=== PATIENT | female | born 1960 | race Caucasian/White ===

== ENCOUNTER 2017-04-11 19:40 | Emergency (ER) | payer OTHER ==
[2017-04-11 20:11] VITALS: TEMP 98; BMI 27.3
[2017-04-11] MEDS ORDERED: LABETALOL HCL 5 MG/1 ML (100MG/20 ML VIAL) IVPUSH ONE (21:02)
[2017-04-11] MEDS ORDERED: LABETALOL HCL 5 MG/1 ML (200MG/40ML VIAL) IVPB ONE (21:09)
[2017-04-11] MEDS ORDERED: morphine CARPU-JECT 2 MG/1 ML DISP.SYRIN IVPUSH ONE (21:14)
[2017-04-11 21:25] LABS: BASOPHIL 0.8 % (0-2.0); EOSINOPHIL 0.4 % (0-4.5); MCHC 33.4 g/dl (32.0-36.0); MEAN PLT VOLUME 8.3 fl (7.5-11.1); NEUTROPHILS 66.4 % (42.8-82.8); PLATELET COUNT 391 K/MM3 (134-434); RDW 14.4 % (11.6-15.6); WHITE BLOOD COUNT 12.2 K/mm3 (4.0-10.0)
[2017-04-11] MEDS ORDERED: morphine CARPU-JECT 4 MG/1 ML DISP.SYRIN ONE (21:25)
[2017-04-11] MEDS ORDERED: hydrALAZINE HCL 20 MG/ML VIAL IVPUSH ONE (21:34)
[2017-04-11 21:49] LABS: INR 1.04 (0.82-1.09); PROTHROMBIN TIME (PATIENT) 11.5 SEC (9.98-11.88)
[2017-04-11 21:51] LABS: ALBUMIN 4.3 g/dl (3.4-5.0); ANION GAP 9 (8-16); BILIRUBIN,TOTAL 0.4 mg/dL (0.2-1.0); CALCIUM 9.5 mg/dL (8.5-10.1); CO2 30 mmol/L (21-32); CREATININE 0.6 mg/dL (0.55-1.02); GLUCOSE,RANDOM 152 mg/dL (74-106); SGOT/AST 14 U/L (15-37); SGPT/ALT 25 U/L (12-78)
[2017-04-11 21:53] LABS: ALK PHOS 67 U/L (45-117); CPK 33 IU/L (26-192); TROPONIN I < 0.02 ng/ml (0.00-0.05)
[2017-04-11] MEDS ORDERED: hydrALAZINE HCL 20 MG/ML VIAL ONE (22:02)
--- NOTE | 2017-04-11 22:48 | PDOC ---
History of Present Illness - General Chief Complaint: Pain Stated Complaint: STOMACH PAIN Time Seen by Provider: 04/11/17 20:26 - History of Present Illness Initial Comments: 04/11/17 22:41 CHIEF COMPLAINT: abdominal pain HISTORY OF PRESENT ILLNESS: 56 yo F with hx of HTN and NIDDM presents to ED with abdominal pain x 1 week. Patient reports vomiting 3x a day for the past few days as well as approximately 10 episodes of diarrhea over the past two days. She also reports a headache since yesterday as well as photophobia today. Patient reports that she takes Losartan for her blood pressure and Metformin for her diabetes, but she has been throwing up the pills this week after taking them. PAST MEDICAL HISTORY: Denies past medical history FAMILY HISTORY: Denies SOCIAL HISTORY: Denies tobacco, alcohol, illicit drug use. SURGICAL HISTORY: Denies ALLERGIES: No known drug allergies REVIEW OF SYSTEMS as per HPI PHYSICAL EXAM General Appearance: Well-appearing, appropriately dressed. No apparent distress. HEENT: EOMI, PERRLA, normal ENT inspection, normal voice, TMs normal, pharynx normal. No conjunctival pallor. No photophobia, scleral icterus. Neck: Supple. Trachea midline. No tenderness, rigidity, carotid bruit, stridor , lymphadenopathy, or thyromegaly. Respiratory/Chest: Lungs CTAB. No shortness of breath, chest tenderness, respiratory distress, accessory muscle use. No crackles, rales, rhonchi, stridor , wheezing, dullness Cardiovascular: RRR. S1, S2. No JVD, murmur, bradycardia, tachycardia. Vascular Pulses: Dorsalis-Pedis (R): 2+, Dorsalis-Pedis (L): 2+ Gastrointestinal/Abdominal: Normal bowel sounds. Abdomen soft, non-distended. No tenderness or rebound tenderness. No organomegaly, pulsatile mass, guarding , hernia, hepatomegaly, splenomegaly. Lymphatic: No adenopathy, tenderness. Musculoskeletal/Extremities: Normal inspection. FROM of all extremities, normal capillary refill. Pelvis Stable. No CVA tenderness. No tenderness to extremities, pedal edema, swelling, erythema or deformity. Integumentary: Appropriate color, dry, warm. No cyanosis, erythema, jaundice or rash Neurologic: hand cloth folder [id number] intact. Fully oriented, alert. Appropriate mood/affect. Motor strength 5/5. No appreciable EOM palsy, facial droop or sensory deficit. Past History - Past Medical History Allergies/Adverse Reactions: Allergies Allergy/AdvReac Type Severity Reaction Status Date / Time No Known Allergies Allergy Verified 04/11/17 20:12 Home Medications: Ambulatory Orders Losartan Potassium 100 mg PO DAILY 04/11/17 Metformin HCl 500 mg PO BID 04/11/17 Ondansetron [Zofran *Odt*] 8 mg SL TID PRN #21 od.tablet 04/12/17 Diabetes: Yes HTN: Yes - Immunization History Immunization Up to Date: Yes - Psycho/Social/Smoking Cessation Hx Suicidal Ideation: No Smoking History: Never smoked Have you smoked in the past 12 months: No Information on smoking cessation initiated: No Hx Alcohol Use: No Drug/Substance Use Hx: No *Physical Exam - Vital Signs Last Vital Signs Temp Pulse Resp BP Pulse Ox 98.0 F 16 205/111 98 04/11/17 20:07 04/11/17 20:07 04/11/17 20:07 04/11/17 20:07 ED Treatment Course - LABORATORY CBC & Chemistry Diagram: 04/11/17 21:15 04/11/17 21:15 - ADDITIONAL ORDERS Additional order review: Laboratory Results 04/11/17 04/11/17 04/11/17 21:15 21:15 21:15 INR 1.04 D-Dimer 209 Sodium 134 L Potassium 3.9 Chloride 95 L Carbon Dioxide 30 Anion Gap 9 BUN 7 Creatinine 0.6 Creat Clearance w eGFR > 60 Random Glucose 152 H Calcium 9.5 Total Bilirubin 0.4 AST 14 L ALT 25 Alkaline Phosphatase 67 Creatine Kinase 33 Troponin I < 0.02 Total Protein 8.0 Albumin 4.3 04/11/17 21:15 RBC 4.69 MCV 84.0 MCHC 33.4 RDW 14.4 MPV 8.3 Neutrophils % 66.4 Lymphocytes % 25.1 Monocytes % 7.3 Eosinophils % 0.4 Basophils % 0.8 - RADIOLOGY Radiology Studies Ordered: Category Date Time Status ABDOMEN CTA W/WO CONTRAST [CT] Stat CT Scan 04/11/17 21:14 Ordered CHEST CTA [CT] Stat CT Scan 04/11/17 21:19 Ordered CHEST PA & LAT [RAD] Stat Radiology 04/11/17 20:48 Completed - Medications Given in the ED: ED Medications Discontinued Medications Generic Name Dose Route Start Last Admin Trade Name Freq PRN Reason Stop Dose Admin Hydralazine HCl 10 mg 04/11/17 21:34 04/11/17 21:59 Apresoline Injection - IVPUSH 04/11/17 21:35 10 mg ONCE ONE Administration Labetalol HCl 10 mg 04/11/17 21:02 04/11/17 21:07 Normodyne Injection - IVPUSH 04/11/17 21:03 10 mg ONCE ONE Administration Morphine Sulfate 2 mg 04/11/17 21:14 04/11/17 21:20 Morphine Injection - IVPUSH 04/11/17 21:15 2 mg ONCE ONE Administration Medical Decision Making - Medical Decision Making 04/12/17 00:23 56 yo F with hx of HTN and NIDDM presents to ED with abdominal pain x 1 week. VS remarkable for BP 224/111 on arrival. -CBC, CMP, card profile, D-dimer, PT/INR, Mg -10 mg labetalol Repeat BP - left BP 228/104, R BP 228/76 -abdomen and chest CTA r/o dissection Repeat BP s/p administration of labetalol 173/98 -10mg hydralazine -10mg morphine Patient reassessed, BP now 124/76. Patient reports that she no longer has any pain to her head or abdomen and is no longer nauseous. *DC/Admit/Observation/Transfer Diagnosis at time of Disposition: Hypertensive emergency - Discharge Dispostion Disposition: HOME Admit: No - Prescriptions Prescriptions: Ondansetron [Zofran *Odt*] 8 mg SL TID PRN #21 od.tablet PRN Reason: Nausea And/Or Vomiting - Referrals Referrals: Heidy Rhodes MD [Primary Care Provider] - Jonny Oleary MD [Staff Physician] - - Patient Instructions Printed Discharge Instructions: DI for Malignant Hypertension Additional Instructions: Take your new medication as prescribed. Please continue to take your blood pressure and diabetes medications as prescribed. You MUST follow up with your primary care doctor and a health information administrator THIS WEEK. If you experience any chest pain, shortness of breath, headache, palpitations, left arm or jaw pain, dizziness, or any new or worsening symptoms, please return to the ER. Celia mena medicamento nuevo solitario lo prescito. Por favor contine tomando roxi medicamentos para la diabetes y la presion segn lo prescrito. Tienes que seguir con mena mdico y un cardilogo ESTA SEMANA. Si experimenta cualquier dolor en el pecho, dificultad para respirar, dolor de jon, palpitaciones, dolor en el brazo dmitry o en la mandbula, mareos o cualquier nuevo o empeoramiento de los sntomas, por favor regrese a la ciaran de emergencias. Print Language: SERBIAN
[2017-04-11] MEDS ORDERED: ONDANSETRON 4 MG/2 ML VIAL IVPUSH ONE (22:51)
[2017-04-11] MEDS ORDERED: FAMOTIDINE 20 MG/50 ML IVPB 50 ML IVPB ONE ×2 (22:51→23:03)
[2017-04-11] MEDS ORDERED: ONDANSETRON 4 MG/2 ML VIAL ONE (23:03)
[2017-04-11 23:19] VITALS: BP 184/93; PULSE 83
--- NOTE | 2017-04-12 00:52 | PDOC ---
*Physical Exam - Vital Signs Last Vital Signs Temp Pulse Resp BP Pulse Ox 98.0 F 83 16 184/93 99 04/11/17 20:07 04/11/17 21:51 04/11/17 20:07 04/11/17 21:51 04/11/17 20:33 ED Treatment Course - LABORATORY CBC & Chemistry Diagram: 04/11/17 21:15 04/11/17 21:15 - ADDITIONAL ORDERS Additional order review: Laboratory Results 04/11/17 04/11/17 04/11/17 21:15 21:15 21:15 INR 1.04 D-Dimer 209 Sodium 134 L Potassium 3.9 Chloride 95 L Carbon Dioxide 30 Anion Gap 9 BUN 7 Creatinine 0.6 Creat Clearance w eGFR > 60 Random Glucose 152 H Calcium 9.5 Total Bilirubin 0.4 AST 14 L ALT 25 Alkaline Phosphatase 67 Creatine Kinase 33 Troponin I < 0.02 Total Protein 8.0 Albumin 4.3 04/11/17 21:15 RBC 4.69 MCV 84.0 MCHC 33.4 RDW 14.4 MPV 8.3 Neutrophils % 66.4 Lymphocytes % 25.1 Monocytes % 7.3 Eosinophils % 0.4 Basophils % 0.8 - Medications Given in the ED: ED Medications Discontinued Medications Generic Name Dose Route Start Last Admin Trade Name Freq PRN Reason Stop Dose Admin Hydralazine HCl 10 mg 04/11/17 21:34 04/11/17 21:59 Apresoline Injection - IVPUSH 04/11/17 21:35 10 mg ONCE ONE Administration Famotidine/Sodium Chloride 50 mls @ 100 mls/hr 04/11/17 22:51 04/11/17 23:14 Pepcid 20 Mg Premixed Ivpb - IVPB 04/11/17 23:20 100 mls/hr ONCE ONE Administration Labetalol HCl 10 mg 04/11/17 21:02 04/11/17 21:07 Normodyne Injection - IVPUSH 04/11/17 21:03 10 mg ONCE ONE Administration Morphine Sulfate 2 mg 04/11/17 21:14 04/11/17 21:20 Morphine Injection - IVPUSH 04/11/17 21:15 2 mg ONCE ONE Administration Ondansetron HCl 8 mg 04/11/17 22:51 04/11/17 23:14 Zofran Injection IVPUSH 04/11/17 22:52 8 mg ONCE ONE Administration Medical Decision Making - Medical Decision Making 04/12/17 00:52 agree with care from LABORATORY ENGINEER Lydia *DC/Admit/Observation/Transfer Diagnosis at time of Disposition: Hypertensive emergency - Discharge Dispostion Disposition: HOME - Prescriptions Prescriptions: Ondansetron [Zofran *Odt*] 8 mg SL TID PRN #21 od.tablet PRN Reason: Nausea And/Or Vomiting - Referrals Referrals: Jonny Oleary MD [Staff Physician] - Heidy Rhodes MD [Primary Care Provider] - - Patient Instructions Printed Discharge Instructions: DI for Malignant Hypertension Additional Instructions: Take your new medication as prescribed. Please continue to take your blood pressure and diabetes medications as prescribed. You MUST follow up with your primary care doctor and a ems instructor THIS WEEK. If you experience any chest pain, shortness of breath, headache, palpitations, left arm or jaw pain, dizziness, or any new or worsening symptoms, please return to the ER. Celia mena medicamento nuevo solitario lo prescito. Por favor contine tomando roxi medicamentos para la diabetes y la presion segn lo prescrito. Tienes que seguir con mena mdico y un cardilogo ESTA SEMANA. Si experimenta cualquier dolor en el pecho, dificultad para respirar, dolor de jon, palpitaciones, dolor en el brazo dmitry o en la mandbula, mareos o cualquier nuevo o empeoramiento de los sntomas, por favor regrese a la ciaran de emergencias. Print Language: MALAWIAN
--- NOTE | 2017-04-19 14:57 | EKG ---
Test Reason : Blood Pressure : / mmHG Vent. Rate : 074 BPM Atrial Rate : 074 BPM P-R Int : 150 ms QRS Dur : 088 ms QT Int : 390 ms P-R-T Axes : 057 025 056 degrees QTc Int : 432 ms NORMAL SINUS RHYTHM NORMAL ECG NO PREVIOUS ECGS AVAILABLE Confirmed by EMILY LIND MD ([id number]) on 04/19/2017 2:57:10 PM Referred By: Confirmed By:EMILY LIND MD
== END 2017-04-12 01:02 | disposition home or self-care (01) ==
LOC: JER 19:40
PROC: 3E033NZ Introduction of Analgesics, Hypnotics, Sedatives into Peripheral Vein, Percutaneous Approach (ICD-10-PCS; principal; 2017-04-11)
PROC: 3E033GC Introduction of Other Therapeutic Substance into Peripheral Vein, Percutaneous Approach (ICD-10-PCS; 2017-04-11)
DX: I16.0 Hypertensive urgency (principal); E11.9 Type 2 diabetes mellitus without complications
CPT/HCPCS: 71020-TC; 71275-TC; 74175-TC; 80053; 84484; 85025; 85379; 85610; 93005; 93010; 99283-25

== ENCOUNTER 2019-04-14 19:24 | Observation (INO) | payer OTHER ==
[2019-04-14] MEDS ORDERED: metoPROLOL SUCCINATE 25 MG TAB.SR.24H (FP) PO ONE (19:47)
--- NOTE | 2019-04-14 19:47 | PDOC ---
Rapid Medical Evaluation Time Seen by Provider: 04/14/19 19:44 Medical Evaluation: Allergies Allergy/AdvReac Type Severity Reaction Status Date / Time No Known Allergies Allergy Verified 04/11/17 20:12 04/14/19 19:44 HPI: C/O HTN at home measuring 200/95 at home complains of RUSSO and Palpitations; 195/94 PE: No gross deficits ORDERS: Metoprolol CT head Discharge Disposition - Diagnosis Hypertensive emergency - Referrals - Patient Instructions - Post Discharge Activity
[2019-04-14 19:48] VITALS: BMI 60.5
[2019-04-14 22:13] LABS: BASO % 0.7 % (0-2.0); EOS % 1.6 % (0-4.5); HEMATOCRIT 35.3 % (32.4-45.2); HEMOGLOBIN 12.1 GM/dL (10.7-15.3); LYMPH % 38.9 % (8-40); MCH 28.5 pg (25.7-33.7); MCHC 34.1 g/dl (32.0-36.0); MEAN CELL VOLUME 83.5 fl (80-96); MEAN PLT VOLUME 8.5 fl (7.5-11.1); MONO % 5.3 % (3.8-10.2); NEUT % 53.5 % (42.8-82.8); PLATELET COUNT 335 K/MM3 (134-434); RBC 4.23 M/mm3 (3.60-5.2); RDW 16.1 % (11.6-15.6); WHITE BLOOD COUNT 8.6 K/mm3 (4.0-10.0)
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
[2019-04-14 23:36] LABS: URINE APPEARANCE CLEAR; URINE BILIRUBIN NEGATIVE (NEGATIVE); URINE COLOR YELLOW; URINE GLUCOSE (UA) TRACE (NEGATIVE); URINE KETONE NEGATIVE (NEGATIVE); URINE LEUK ESTERASE NEGATIVE (NEGATIVE); URINE NITRITE NEGATIVE (NEGATIVE); URINE PROTEIN NEGATIVE (NEGATIVE); URINE UROBILINOGEN 0.2 mg/dL (0.2-1.0)
--- NOTE | 2019-04-14 23:55 | PN ---
Teaching Attending Note Name of Resident: Freida Amaya ATTENDING PHYSICIAN STATEMENT I saw and evaluated the patient. I reviewed the resident's note and discussed the case with the resident. I agree with the resident's findings and plan as documented. Seen and examined; please see resident note for further historical information. Briefly, this is a 58 y/o female who recently changed her BP meds (LP to amlo ) presents with a CC of chest tightness, typical HTN sx. No current CP. Pending repeat troponin. Will require obs for telemetry with potential cardiac consultation VS, labs, imaging SBP initially elevated to the 190s; now 150s. Checking orthostatics as well. NAD, AAO, resting in bed NC AT EOMI PERRLA RRR s1/2 NC AT EOMI PERRLA CN2-12 wnl, no fnd Normal mood, appropriate behavior EKG reviewed; on telemetry CXR reviewed Echo pending ASSESSMENT AND PLAN: Patient presents for chest tightness, HTN. She has multiple CAD risk factors. BP is wnl, CP free now
--- NOTE | 2019-04-15 00:37 | PDOC ---
Documentation entered by Allen Coleman SCRIBE, acting as scribe for Ceci Vega DO. Ceci Vega DO: This documentation has been prepared by the Jared steele Elijah, SCRIBE, under my direction and personally reviewed by me in its entirety. I confirm that the documentation accurately reflects all work , treatment, procedures, and medical decision making performed by me. Attending Attestation - Resident Resident Name: Yon Gomez - ED Attending Attestation I have performed the following: I have examined & evaluated the patient, The case was reviewed & discussed with the resident, I agree w/resident's findings & plan - HPI HPI: 04/14/19 22:37 Patient is a 58 year old female with a significant past medical history of HTN and DM who presents to the ED with CP, Lightheadedness and Dizziness. Patient associates a cough with her symptoms and notes that she has recently spent a lot of time out in the sun. Denies trauma. Allergies: NKA PCP: Dr. Rhodes 04/15/19 00:30 - Physicial Exam PE: 04/14/19 22:39 Agree with Resident's Exam - Medical Decision Making 04/15/19 00:35 58-year-old female with intermittent chest pain and lightheadedness EKG was unremarkable Troponin and CT scan of the brain are within normal limits Due to patient's age and chest pain associated dizziness she will be held for serial enzymes and further evaluation
--- NOTE | 2019-04-15 01:44 | HP ---
CHIEF COMPLAINT: Chest pain and headache PCP: Dr. Heidy Rhodes HISTORY OF PRESENT ILLNESS: Patient is a 58 year old female with PMH of HTN and NIDDM who presents with chest pain and headache for 4 days. Chest pain is dull, pleuritic, and non- radiating. Her headache is constant and 7/10 in severity. She reports that last week, her PCP switched her BP medication from losartan to amlodipine and since then, she has had these symptoms. She takes her BP frequently at home and notes that it has been high since her med change. Today it was in the 200s so she decided to come to the ED. Pt endorses associated dizziness, but denies any SOB , abd pain, nausea, vomiting, diarrhea, blurred vision, tinnitus. ER course was notable for: (1) BP: 195/94, given 25mg metoprolol succinate and improved to 152/78 (2) EKG: NSR, no ST elevations, trop neg (3) CT head: no acute intracranial pathology (4) UA: neg, labs WNL Recent Travel: denies PAST MEDICAL HISTORY: HTN NIDDM PAST SURGICAL HISTORY: Denies Social History: Smoking: denies Alcohol: denies Drugs: denies Family History: Mother: [place] Father: stroke Sister: Breast [place] Brother: [place] Allergies No Known Allergies Allergy (Verified 04/11/17 20:12) HOME MEDICATIONS: Home Medications Medication Instructions Recorded Losartan Potassium 100 mg PO DAILY 04/11/17 metFORMIN HCL [Metformin HCl] 500 mg PO BID 04/11/17 Ondansetron [Zofran *Odt*] 8 mg SL TID PRN #21 od.tablet 04/12/17 REVIEW OF SYSTEMS CONSTITUTIONAL: Absent: fever, chills, diaphoresis, generalized weakness, malaise, loss of appetite, weight change HEENT: Absent: rhinorrhea, nasal congestion, throat pain, throat swelling, difficulty swallowing, mouth swelling, ear pain, eye pain, visual changes CARDIOVASCULAR: chest pain Absent: syncope, palpitations, irregular heart rate, lightheadedness, peripheral edema RESPIRATORY: Absent: cough, shortness of breath, dyspnea with exertion, orthopnea, wheezing, stridor, hemoptysis GASTROINTESTINAL: Absent: abdominal pain, abdominal distension, nausea, vomiting, diarrhea, constipation, melena, hematochezia GENITOURINARY: Absent: dysuria, frequency, urgency, hesitancy, hematuria, flank pain, genital pain MUSCULOSKELETAL: Absent: myalgia, arthralgia, joint swelling, back pain, neck pain SKIN: Absent: rash, itching, pallor HEMATOLOGIC/IMMUNOLOGIC: Absent: easy bleeding, easy bruising, lymphadenopathy, frequent infections ENDOCRINE: Absent: unexplained weight gain, unexplained weight loss, heat intolerance, cold intolerance NEUROLOGIC: headache, dizziness Absent: focal weakness or paresthesias, unsteady gait, seizure, mental status changes, bladder or bowel incontinence PSYCHIATRIC: Absent: anxiety, depression, suicidal or homicidal ideation, hallucinations. PHYSICAL EXAMINATION Vital Signs - 24 hr 04/14/19 04/14/19 04/14/19 19:44 21:19 22:19 Temperature 98.5 F Pulse Rate 84 Pulse Rate [ 85 64 Apical] Respiratory 20 20 17 Rate Blood Pressure 195/94 H Blood Pressure 181/83 H 158/83 [Left Arm] O2 Sat by Pulse 100 99 97 Oximetry (%) GENERAL: Awake, alert, and fully oriented, in no acute distress. HEAD: Normal with no signs of trauma. EYES: Pupils equal, round and reactive to light, extraocular movements intact, sclera anicteric, conjunctiva clear. No lid lag. EARS, NOSE, THROAT: Ears normal, nares patent, oropharynx clear without exudates. Moist mucous membranes. NECK: Normal range of motion, supple without lymphadenopathy, JVD, or masses. LUNGS: Breath sounds equal, clear to auscultation bilaterally. No wheezes, and no crackles. No accessory muscle use. HEART: Regular rate and rhythm, normal S1 and S2 without murmur, rub or gallop. ABDOMEN: Soft, nontender, not distended, normoactive bowel sounds, no guarding, no rebound, no masses. No hepatomegaly or splenomegaly. MUSCULOSKELETAL: Normal range of motion at all joints. No bony deformities or tenderness. No CVA tenderness. UPPER EXTREMITIES: 2+ pulses, warm, well-perfused. No cyanosis. No clubbing. No peripheral edema. LOWER EXTREMITIES: 2+ pulses, warm, well-perfused. No calf tenderness. No peripheral edema. NEUROLOGICAL: Cranial nerves II-XII intact. Normal speech. Normal gait. PSYCHIATRIC: Cooperative. Good eye contact. Appropriate mood and affect. SKIN: Warm, dry, normal turgor, no rashes or lesions noted, normal capillary refill. Laboratory Results - last 24 hr CBC, BMP 04/14/19 21:59 04/15/19 00:45 Urine Test Results Urine Color Yellow Urine Appearance Clear Urine pH 6.0 (5.0-8.0) Ur Specific [place] 1.014 (1.010-1.035) Urine Protein Negative (NEGATIVE) Urine Glucose (UA) Trace (NEGATIVE) Urine Ketones Negative (NEGATIVE) Urine Blood Negative (NEGATIVE) Urine Nitrite Negative (NEGATIVE) Urine Bilirubin Negative (NEGATIVE) Ur Leukocyte Esterase Negative (NEGATIVE) ASSESSMENT/PLAN: Patient is a 58 year old female with PMH of HTN and NIDDM who presents with chest pain and headache for 4 days. #Hypertensive urgency BP: 195/94 on admission, improved to 152/78 s/p 25mg metoprolol succinate Will cont home meds norvasc 10mg daily CT head: no acute intracranial pathology CXR: no acute pathology EKG: NSR, no ST elevations Trend serial troponins (neg x1), pending 2 more F/u echo in am #NIDDM Pt on metformin at home Will start on SSI TIDAC while admitted in hospital FSG monitoring TID #FEN No standing fluids Diabetic diet #DVT ppx SCDs #Dispo Placed in obs, awaiting echo in am Visit type - Emergency Visit Emergency Visit: Yes ED Registration Date: 04/15/19 Care time: The patient presented to the Emergency Department on the above date and was hospitalized for further evaluation of their emergent condition. - New Patient This patient is new to me today: Yes Date on this admission: 04/15/19 - Critical Care Critical Care patient: No ATTENDING PHYSICIAN STATEMENT I saw and evaluated the patient. I reviewed the resident's note and discussed the case with the resident. I agree with the resident's findings and plan as documented. SUBJECTIVE: OBJECTIVE: ASSESSMENT AND PLAN:
[2019-04-15 02:07] LABS: ALBUMIN 3.6 g/dl (3.4-5.0); BILIRUBIN,TOTAL 0.1 mg/dL (0.2-1); BLOOD UREA NITROGEN 16.2 mg/dL (7-18); CALCIUM 8.9 mg/dL (8.5-10.1); CREATININE 0.5 mg/dL (0.55-1.3); POTASSIUM 4.1 mmol/L (3.5-5.1); TOT PROT 6.5 g/dl (6.4-8.2)
--- NOTE | 2019-04-15 06:40 | PN ---
Physical Exam: SUBJECTIVE: Patient seen and examined OBJECTIVE: Vital Signs Period Temp Pulse Resp BP Sys/Cline Pulse Ox Last 24 Hr 98.5 F 64-85 17-20 158-195/83-94 97-100 GENERAL: The patient is awake, alert, and fully oriented, in no acute distress. HEAD: Normal with no signs of trauma. EYES: PERRL, extraocular movements intact, sclera anicteric, conjunctiva clear. No ptosis. ENT: Ears normal, nares patent, oropharynx clear without exudates, moist mucous membranes. NECK: Trachea midline, full range of motion, supple. LUNGS: Breath sounds equal, clear to auscultation bilaterally, no wheezes, no crackles, no accessory muscle use. HEART: Regular rate and rhythm, S1, S2 without murmur, rub or gallop. ABDOMEN: Soft, nontender, nondistended, normoactive bowel sounds, no guarding, no rebound, no hepatosplenomegaly, no masses. EXTREMITIES: 2+ pulses, warm, well-perfused, no edema. NEUROLOGICAL: Cranial nerves II through XII grossly intact. Normal speech, gait not observed. PSYCH: Normal mood, normal affect. SKIN: Warm, dry, normal turgor, no rashes or lesions noted Laboratory Results - last 24 hr 04/14/19 04/14/19 04/14/19 21:59 21:59 21:59 WBC 8.6 RBC 4.23 Hgb 12.1 Hct 35.3 MCV 83.5 MCH 28.5 MCHC 34.1 RDW 16.1 H Plt Count 335 MPV 8.5 Absolute Neuts (auto) 4.6 Neutrophils % 53.5 Lymphocytes % 38.9 D Monocytes % 5.3 Eosinophils % 1.6 D Basophils % 0.7 Nucleated RBC % 0 Sodium Cancelled Potassium Cancelled Chloride Cancelled Carbon Dioxide Cancelled Anion Gap Cancelled BUN Cancelled Creatinine Cancelled Est GFR (CKD-EPI)AfAm Cancelled Est GFR (CKD-EPI)NonAf Cancelled Random Glucose Cancelled Calcium Cancelled Total Bilirubin Cancelled AST Cancelled ALT Cancelled Alkaline Phosphatase Cancelled Creatine Kinase Cancelled Troponin I Cancelled Total Protein Cancelled Albumin Cancelled Urine Color Urine Appearance Urine pH Ur Specific [place] Urine Protein Urine Glucose (UA) Urine Ketones Urine Blood Urine Nitrite Urine Bilirubin Urine Urobilinogen Ur Leukocyte Esterase Blood Type Antibody Screen 04/14/19 04/14/19 04/15/19 21:59 22:30 00:45 WBC RBC Hgb Hct MCV MCH MCHC RDW Plt Count MPV Absolute Neuts (auto) Neutrophils % Lymphocytes % Monocytes % Eosinophils % Basophils % Nucleated RBC % Sodium 142 Potassium 4.1 Chloride 108 H Carbon Dioxide 27 Anion Gap 6 L BUN 16.2 Creatinine 0.5 L Est GFR (CKD-EPI)AfAm 125.40 Est GFR (CKD-EPI)NonAf 108.19 Random Glucose 117 H Calcium 8.9 Total Bilirubin 0.1 L AST 9 L ALT 22 Alkaline Phosphatase 66 Creatine Kinase Troponin I Total Protein 6.5 Albumin 3.6 Urine Color Yellow Urine Appearance Clear Urine pH 6.0 Ur Specific [place] 1.014 Urine Protein Negative Urine Glucose (UA) Trace Urine Ketones Negative Urine Blood Negative Urine Nitrite Negative Urine Bilirubin Negative Urine Urobilinogen 0.2 Ur Leukocyte Esterase Negative Blood Type Cancelled Antibody Screen Cancelled 04/15/19 00:45 WBC RBC Hgb Hct MCV MCH MCHC RDW Plt Count MPV Absolute Neuts (auto) Neutrophils % Lymphocytes % Monocytes % Eosinophils % Basophils % Nucleated RBC % Sodium Potassium Chloride Carbon Dioxide Anion Gap BUN Creatinine Est GFR (CKD-EPI)AfAm Est GFR (CKD-EPI)NonAf Random Glucose Calcium Total Bilirubin AST ALT Alkaline Phosphatase Creatine Kinase Troponin I < 0.02 Total Protein Albumin Urine Color Urine Appearance Urine pH Ur Specific [place] Urine Protein Urine Glucose (UA) Urine Ketones Urine Blood Urine Nitrite Urine Bilirubin Urine Urobilinogen Ur Leukocyte Esterase Blood Type Antibody Screen Active Medications Generic Name Dose Route Start Last Admin Trade Name Freq PRN Reason Stop Dose Admin Amlodipine Besylate 10 mg 04/15/19 10:00 Norvasc - PO DAILY PENDING SALE TO [facility] Insulin Aspart 0 vial 04/15/19 07:00 Novolog Vial Sliding Scale - SQ ACHS KALLI Protocol ASSESSMENT/PLAN: HISTORY OF PRESENT ILLNESS: Patient is a 58 year old female with PMH of HTN and NIDDM who presents with chest pain and headache for 4 days. Chest pain is dull, pleuritic, and non- radiating. Her headache is constant and 7/10 in severity. She reports that last week, her PCP switched her BP medication from losartan to amlodipine and since then, she has had these symptoms. She takes her BP frequently at home and notes that it has been high since her med change. Today it was in the 200s so she decided to come to the ED. Pt endorses associated dizziness, but denies any SOB , abd pain, nausea, vomiting, diarrhea, blurred vision, tinnitus. ER course was notable for: (1) BP: 195/94, given 25mg metoprolol succinate and improved to 152/78 (2) EKG: NSR, no ST elevations, trop neg (3) CT head: no acute intracranial pathology (4) UA: neg, labs WNL Social History: Smoking: denies Alcohol: denies Drugs: denies Family History: Mother: [place] Father: stroke Sister: Breast [place] Brother: [place] Home Medications Medication Instructions Recorded Losartan Potassium 100 mg PO DAILY 04/11/17 metFORMIN HCL [Metformin HCl] 500 mg PO BID 04/11/17 Ondansetron [Zofran *Odt*] 8 mg SL TID PRN #21 od.tablet 04/12/17 ASSESSMENT/PLAN: Patient is a 58 year old female with PMH of HTN and NIDDM who presents with chest pain and headache for 4 days. #Hypertensive urgency -BP: 195/94 on admission, improved to 152/78 s/p 25mg metoprolol succinate -Cont Norvasc 10mg daily -CT head: no acute intracranial pathology -CXR: no acute pathology -EKG: NSR, no ST elevations -Trend serial troponins 0.02, trend -F/u echo in am #NIDDM -Pt on metformin at home -Will start on Aspart SS while admitted in hospital -BGM #FEN -No standing fluids -Diabetic diet #DVT ppx -SCDs #Dispo -Placed in obs, awaiting echo in am ATTENDING PHYSICIAN STATEMENT I saw and evaluated the patient. I reviewed the resident's note and discussed the case with the resident. I agree with the resident's findings and plan as documented. SUBJECTIVE: OBJECTIVE: ASSESSMENT AND PLAN:
[2019-04-15] MEDS: INSULIN SLIDING SCALE (NOVOLOG) 1 VIAL SQ SCH ×3 (07:00→17:17)
[2019-04-15 07:08] LABS: HEMATOCRIT 34.1 % (32.4-45.2); HEMOGLOBIN 11.1 GM/dL (10.7-15.3); MCH 28.2 pg (25.7-33.7); MCHC 32.4 g/dl (32.0-36.0); MEAN CELL VOLUME 86.9 fl (80-96); MEAN PLT VOLUME 8.1 fl (7.5-11.1); PLATELET COUNT 305 K/MM3 (134-434); RBC 3.93 M/mm3 (3.60-5.2); RDW 14.9 % (11.6-15.6); WHITE BLOOD COUNT 7.1 K/mm3 (4.0-10.0)
[2019-04-15 07:36] LABS: ALBUMIN 3.4 g/dl (3.4-5.0); ALK PHOS 64 U/L (45-117); ANION GAP 8 MMOL/L (8-16); BILIRUBIN,TOTAL 0.3 mg/dL (0.2-1); BLOOD UREA NITROGEN 15.1 mg/dL (7-18); CALCIUM 8.9 mg/dL (8.5-10.1); CHLORIDE 108 mmol/L (98-107); CO2 28 mmol/L (21-32); CREATININE 0.5 mg/dL (0.55-1.3); GLUCOSE,RANDOM 133 mg/dL (74-106); POTASSIUM 4.2 mmol/L (3.5-5.1); SGOT/AST 8 U/L (15-37); SGPT/ALT 20 U/L (13-61); SODIUM 144 mmol/L (136-145); TOT PROT 6.4 g/dl (6.4-8.2)
[2019-04-15] MEDS ORDERED: amLODIPine BESYLATE 10 MG TABLET (FP) PO SCH (10:00)
--- NOTE | 2019-04-15 10:08 | ECHO ---
Version: 1 Name: HARDEEP SIMON Exam: Adult Echocardiogram Study Date: 04/15/2019, 7:46 AM Age: 58 Years MMode/2D Measurements & Calculations IVSd: 0.73 cm LVIDs: 2.5 cm LVIDd: 3.3 cm LVPWd: 1.27 cm ACS: 1.75 cm LA dimension: 3.3 cm LVOT diam: 1.95 cm Doppler Measurements & Calculations MV E max farhat: 86.9 cm/sec Med E/e': 10.0 MV A max farhat: 84.9 cm/sec Med Peak E' Farhat: 8.7 cm/sec MV E/A: 1.02 Lat E/e': 7.5 Lat Peak E' Farhat: 11.5 cm/sec MR max P.4 mmHg Ao max P.7 mmHg ANUPAMA(I,D): 2.16 cm Ao mean P.0 mmHg LV V1 mean: 63.3 cm/sec Ao V2 max: 129.2 cm/sec LV V1 mean P.73 mmHg TR max farhat: 248.9 cm/sec TR max P.8 mmHg Left Ventricle The left ventricular size, thickness and function are normal. Right Ventricle The right ventricle is normal in size and function. Atria Normal left and right atrial size and function. Mitral Valve The mitral valve is normal in structure and function. There is mild mitral regurgitation. Tricuspid Valve The tricuspid valve is normal in structure and function. There is mild tricuspid regurgitation. Aortic Valve The aortic valve is normal in structure and function. Pulmonic Valve The pulmonic valve is not well seen, but is grossly normal. Great Vessels The aortic root is normal size. Pericardium/Pleura There is no pericardial effusion. Summary Statements The left ventricular size, thickness and function are normal The right ventricle is normal in size and function. Normal left and right atrial size and function. The mitral valve is normal in structure and function. There is mild mitral regurgitation. The tricuspid valve is normal in structure and function. There is mild tricuspid regurgitation. The aortic valve is normal in structure and function. Estimated EF 50 - 55 mmHg PASP 30 mmHg MD Varinder Madison 04/15/2019, 9:07 AM Ordering Physician: HARDEEP GRIDER Performed By: Carolyn Lomeli
[2019-04-15] MEDS ORDERED: amLODIPine BESYLATE 5 MG TABLET (FP) ONE (10:45)
--- NOTE | 2019-04-15 11:25 | EKG ---
Test Reason : Blood Pressure : / mmHG Vent. Rate : 085 BPM Atrial Rate : 085 BPM P-R Int : 130 ms QRS Dur : 084 ms QT Int : 382 ms P-R-T Axes : 039 031 054 degrees QTc Int : 454 ms POOR DATA QUALITY, INTERPRETATION MAY BE ADVERSELY AFFECTED NORMAL SINUS RHYTHM NORMAL ECG WHEN COMPARED WITH ECG OF 11-APR-2017 21:31, NO SIGNIFICANT CHANGE WAS FOUND Confirmed by Jonny Oleary MD ([id number]) on 04/15/2019 11:25:36 AM Referred By: Confirmed By:Jonny Oleary MD
[2019-04-15] MEDS ORDERED: INSULIN (NOVOLOG) ASPART 100 UNITS/ML 10ML VIAL ONE (11:59)
[2019-04-15] MEDS ORDERED: HYDROCHLOROTHIAZIDE 25 MG TABLET (FP) PO ONE (16:19)
--- NOTE | 2019-04-15 16:19 | DS ---
Physical Examination Vital Signs: Vital Signs Temperature 98.0 F 04/15/19 07:10 Pulse Rate 78 04/15/19 09:30 Respiratory Rate 18 04/15/19 09:30 Blood Pressure 155/77 04/15/19 09:30 O2 Sat by Pulse Oximetry (%) 100 04/15/19 09:30 Findings/Remarks: pt seen/ examined chart reviewed comfortable wants to go home denies cp/sob bp better Constitutional: Yes: No Distress Neck: Yes: Supple Cardiovascular: Yes: Regular Rate and Rhythm Respiratory: Yes: CTA Bilaterally Gastrointestinal: Yes: Soft Edema: No Neurological: Yes: Alert ...Motor Strength: WNL, LUE Psychiatric: Yes: Alert Labs: CBC, BMP 04/15/19 06:50 04/15/19 06:50 Discharge Summary Reason For Visit: HYPERTENSIVE EMERGENCY Current Active Problems Hypertensive emergency (Acute) Hospital Course: Admitted for htn urgency/ cp Mi ruled out BP better ekg- Unremarkable echo - ok discussed BP Now 155/76 will d/c on amlodipine 10 mg and hctz 25 mg will give one dose before discharge diet counselled Stress test as out pt-- pt will be following her pmd Pt will also discuss meds with pmd- Not taking Losartan consider eber/ arb if no issues pt to follow with pmd D/W RN also Condition: Stable - Instructions Diet, Activity, Other Instructions: f/u with pmd in 2-3 days Disposition: HOME - Home Medications Comprehensive Discharge Medication List: Ambulatory Orders metFORMIN HCL [Metformin HCl] 1,000 mg PO BID 04/11/17 Amlodipine Besylate [Norvasc -] 10 mg PO DAILY 04/15/19 Hydrochlorothiazide 25 mg PO DAILY 30 Days #30 tablet 04/15/19
[2019-04-15 16:37] VITALS: BP 156/75; PULSE 72; TEMP 98.4
[2019-04-15] MEDS ORDERED: HYDROCHLOROTHIAZIDE 25 MG TABLET (FP) ONE (16:42)
== END 2019-04-15 17:06 | disposition home or self-care (01) ==
LOC: JER 19:24 → JERBED 04-15 01:37
PROVIDERS: ADMIT Internal Medicine; ATTEND Internal Medicine
DX: I16.1 Hypertensive emergency (principal); I10 Essential (primary) hypertension; E11.9 Type 2 diabetes mellitus without complications; Z79.84 Long term (current) use of oral hypoglycemic drugs
CPT/HCPCS: 36415; 70450-TC; 71046-TC-FY; 80053; 81003; 82962; 84484; 85025; 85027; 87086; 93005; 93010; 93306-TC; 99285-25; G0378